=== PATIENT | female | born 1995 | race Caucasian/White ===

== ENCOUNTER 2023-09-06 14:59 | Emergency (ER) | payer OTHER ==
--- NOTE | 2023-09-06 15:49 | XR ---
EXAMINATION TYPE: XR finger LT (3 views left 2nd digit) DATE OF EXAM: 09/06/2023 Comparison: None Clinical History: 28 year old female nonhealing wound, 2nd digit infection Findings: Pronounced soft tissue swelling at the distal aspect of the second digit. There is associated osseous destruction along the radial aspect of the distal phalangeal tuft. No subluxation or dislocation. No displaced fractures. Impression: Pronounced soft tissue swelling distal aspect of the index finger with small area of osseous destruct ion along the radial aspect of the distal phalangeal tuft. Findings suggest a contiguous osteomyeliti s.
[2023-09-06] MEDS ORDERED: CLINDAMYCIN 150 MG CAP PO STA (16:03)
--- NOTE | 2023-09-06 16:05 | ED ---
Upper Extremity HPI - General Chief Complaint: Skin/Abscess/Foreign Body Stated Complaint: left index finger infection Time Seen by Provider: 09/06/23 15:12 Source: patient, EMS, RN notes reviewed Mode of arrival: EMS Limitations: no limitations - History of Present Illness Initial Comments: 28-year-old female presents emergency Department with chief complaint of finger infection. Patient states she's had infection is in the finger she states this is from smoking and drugs. She states that there is some drainage states its open and very painful. Patient is requesting antibiotic she states she does not want any of this time. - Related Data Previous Rx's Medication Instructions Recorded clindamycin HCL 300 mg PO QID #40 cap 09/06/23 Allergies Allergy/AdvReac Type Severity Reaction Status Date / Time No Known Allergies Allergy Verified 09/06/23 15:11 Review of Systems ROS Statement: Those systems with pertinent positive or pertinent negative responses have been documented in the HPI. ROS Other: All systems not noted in ROS Statement are negative. Past Medical History Past Medical History: No Reported History History of Any Multi-Drug Resistant Organisms: None Reported Past Surgical History: Section Past Psychological History: Anxiety Smoking Status: Former smoker Past Alcohol Use History: None Reported Past Drug Use History: Marijuana General Exam Limitations: no limitations General appearance: alert, in no apparent distress Head exam: Present: atraumatic, normocephalic, normal inspection Cardiovascular Exam: Present: normal rhythm, tachycardia (heart rate 104 on exam), normal heart sounds. Absent: systolic murmur, diastolic murmur, rubs, gallop, clicks Extremities exam: Present: other (Left hand second digit there is a large open wound with friable tissue noted severe times with palpation, no tenderness proximal to the distal phalange ) Course Vital Signs 09/06/23 15:06 Temperature 98.4 F Pulse Rate 130 H Respiratory 18 Rate Blood Pressure 129/71 O2 Sat by Pulse 99 Oximetry Medical Decision Making - Medical Decision Making Was pt. sent in by a medical professional or institution ([facility]IL Rodriguez, [employer] PAGE [employer], urgent care, hospital, or shelter...) When possible be specific @ -No Did you speak to anyone other than the patient for history (EMS, parent, family, police, friend...)? What history was obtained from this source @ -No Did you review nursing and triage notes (agree or disagree)? Why? @ -I reviewed and agree with nursing and triage notes Were old charts reviewed (outside hosp., previous admission, EMS record, old EKG, old radiological studies, urgent care reports/EKG's, shelter records)? Report findings @ -No old charts were reviewed Differential Diagnosis (chest pain, altered mental status, abdominal pain women, abdominal pain men, vaginal bleeding, weakness, fever, dyspnea, syncope, headache, dizziness, GI bleed, back pain, seizure, CVA, palpatations, mental health, musculoskeletal)? @ -Felon, paronychia, osteomyelitis, cellulitis EKG interpreted by me (3pts min.). @ -None X-rays interpreted by me (1pt min.). @ -[X-ray second digit left hand there is evidence of osteomyelitis CT interpreted by me (1pt min.). @ -None done U/S interpreted by me (1pt. min.). @ -None done What testing was considered but not performed or refused? (CT, X-rays, U/S, labs)? Why? @ -None What meds were considered but not given or refused? Why? @ -None Did you discuss the management of the patient with other professionals (professionals i.e. , PA, WEB PAGE DESIGNER, lab, RT, psych nurse, geriatric social worker, fur cutting machine operator, teacher, code enforcement officer, top case assembler)? Give summary @ -No Was smoking cessation discussed for >3mins.? @ -No Was critical care preformed (if so, how long)? @ -No Were there social determinants of health that impacted care today? How? (Homelessness, low income, unemployed, alcoholism, drug addiction, transportation, low edu. Level, literacy, decrease access to med. care, longterm, rehab)? @ -No Was there de-escalation of care discussed even if they declined (Discuss DNR or withdrawal of care, Hospice)? DNR status @ -No What co-morbidities impacted this encounter? (DM, HTN, Smoking, COPD, CAD, Cancer, CVA, ARF, Chemo, Hep., AIDS, mental health diagnosis, sleep apnea, morbid obesity)? @ -None Was patient admitted / discharged? Hospital course, mention meds given and route, prescriptions, significant lab abnormalities, going to OR and other pertinent info. @ -[AMA - patient recommended to be admitted secondary to osteomyelitis and significant infection of her digit requiring long-term antibiotics and evaluation by infectious disease, orthopedics. Patient refuses all treatment. She was updated on the risk of leaving with family in the room including possible bacteremia, sepsis, loss of finger Undiagnosed new problem with uncertain prognosis? @ -No Drug Therapy requiring intensive monitoring for toxicity (Heparin, Nitro, Insulin, Cardizem)? @ -No Were any procedures done? @ -No Diagnosis/symptom? @ -Osteomyelitis left index finger acute Acute, or Chronic, or Acute on Chronic? @ -Acute Uncomplicated (without systemic symptoms) or Complicated (systemic symptoms)? @ -Complicated Side effects of treatment? @ -No Exacerbation, Progression, or Severe Exacerbation? @ -No Poses a threat to life or bodily function? How? (Chest pain, [place], [place], pneumonia, PE, COPD, DKA, ARF, appy, cholecystitis, CVA, Diverticulitis, Homicidal, Suicidal, threat to staff... and all critical care pts) @ -[Yes Disposition Clinical Impression: Finger osteomyelitis, Felon of digit Disposition: LEFT AGAINST MEDICAL ADVICE Prescriptions: clindamycin HCL 300 mg PO QID #40 cap Is patient prescribed a controlled substance at d/c from ED?: No Referrals: Jimmy Lopes DO [Doctor of Osteopathic Medicine] - 1-2 days Shirley Daley DO [Doctor of Osteopathic Medicine] - 1-2 days Aimee Gutierrez MD [STAFF PHYSICIAN] - 1-2 days Time of Disposition: 16:04
[2023-09-06 17:02] VITALS: BP 128/68; PULSE 125; RESP 17; TEMP 98.2
== END 2023-09-06 16:39 | disposition left against medical advice (07) ==
LOC: EC 14:59
DX: M86.142 Other acute osteomyelitis, left hand (principal); L03.012 Cellulitis of left finger; Z86.59 Personal history of other mental and behavioral disorders; Z87.891 Personal history of nicotine dependence; F12.90 Cannabis use, unspecified, uncomplicated; Z53.29 Procedure and treatment not carried out because of patient's decision for other reasons
CPT/HCPCS: 99283